=== PATIENT | male | born 1960 | race African-American/Black ===

== ENCOUNTER 2021-05-18 09:14 | Emergency (ER) | payer MEDICAID, SELFPAY ==
[2021-05-18] VITALS (7 sets, daily range): BP systolic 88–116; BP diastolic 52–64; PULSE 80–87; RESP 16–18; TEMP 36.6–36.9; O2SAT 98–99; BMI 29.0
[2021-05-18 10:46] LABS: MANUAL DIFF FLAG NO
--- NOTE | 2021-05-18 10:52 | ECG_ITS ---
Test Reason : GENERAL MEDICINE Blood Pressure : / mmHG Vent. Rate : 079 BPM Atrial Rate : 079 BPM P-R Int : 230 ms QRS Dur : 082 ms QT Int : 380 ms P-R-T Axes : 077 -01 066 degrees QTc Int : 435 ms Sinus rhythm with 1st degree A-V block Otherwise normal ECG When compared with ECG of 12-FEB-2020 15:27, MO interval has increased Referred By: Brianne Garcia Electronically Signed By:Meño Rothman
[2021-05-18] MEDS: 0.9 % Sodium Chloride 1,000 ML 999 ML IV (10:53)
[2021-05-18 11:04] LABS: Basophils Percent Auto 0.3 % (0-2); Eosinophils Absolute Auto 0.2 X10*3/uL (0.0-0.4); Eosinophils Percent Auto 3.4 % (0-4); Hemoglobin 11.6 g/dl (14.0-18.0); Imm Gran Abs Auto 0.02 X10*3/uL (0.00-0.03); Imm Gran Pct Auto 0.3 % (0.0-0.4); Lymphocytes Percent Auto 13.6 % (20-40); Mean Corpuscular HGB Conc 33.1 g/dl (31.0-36.0); Mean Corpuscular Hemoglobin 27.6 pg (27.0-33.0); Mean Corpuscular Volume 83.1 fL (80-98); Mean Platelet Volume 9.8 fL (9.4-12.4); Monocytes Absolute Auto 0.7 X10*3/uL (0.1-1.2); Monocytes Percent Auto 9.9 % (2-11); Neutrophils Absolute Auto 5.1 X10*3/uL (2.0-8.3); Neutrophils Percent Auto 72.5 % (45-73); Platelet Count 285 X10*3/uL (160-400); Red Blood Count 4.21 X10*6/uL (4.60-5.80); Red Cell Distribution Width 14.2 % (11.0-16.0)
[2021-05-18 11:20] LABS: Anion Gap 13 (12-20); Blood Urea Nitrogen 35 mg/dL (9-16); Carbon Dioxide 23 mmol/L (22-29); Chloride 104 mmol/L (96-108); Creatinine Clr Calc Pharmacy 31.4; Estimated Glomerular Filt Rate 25; Glucose Random 95 mg/dL (60-115); Magnesium 2.1 mg/dL (1.6-2.6); Potassium 4.9 mmol/L (3.3-5.1); Sodium 135 mmol/L (135-145)
--- NOTE | 2021-05-18 11:36 | ED.GENADULT ---
HPI - General Adult General Chief complaint: General Medical <VAZQUEZ Mahan Last Filed: 05/18/21 14:08> Stated complaint: low blood pressure <VAZQUEZ Mahan Last Filed: 05/18/21 14:08> Time Seen by Provider: 05/18/21 10:51 <VAZQUEZ Mahan Last Filed: 05/18/21 14:08> Source: patient and family <VAZQUEZ Mahan Last Filed: 05/18/21 14:08> Mode of arrival: ambulatory <VAZQUEZ Mahan - Last Filed: 05/18/21 14:08> Limitations: no limitations <VAZQUEZ Mahan Last Filed: 05/18/21 14:08> History of Present Illness HPI narrative: 60 y/o male with history of DM2 on insulin, HTN on 4 antihypertensive medications, kidney stones & BPH who presents to the ER with 3 days of feeling unwell. He is dizzy, feeling weak and not eating much. He is coughing up phlegm and feeling nauseated at times. He has no vomiting but a few episodes of loose stools, 1 or 2 per day. He denies fevers but has had chills for several days. He reports normal urination and denies dysuria or hematuria. <VAZQUEZ Mahan - Last Filed: 05/18/21 14:08> MD complaint: dizziness, low BP <VAZQUEZ Mahan - Last Filed: 05/18/21 14:08> Onset (ago): day(s) (3) <VAZQUEZ Mahan Last Filed: 05/18/21 14:08> Location: head <VAZQUEZ Mahan Last Filed: 05/18/21 14:08> Radiation: non-radiation <VAZQUEZ Mahan Last Filed: 05/18/21 14:08> Severity: moderate <VAZQUEZ Mahan Last Filed: 05/18/21 14:08> Quality: aching <VAZQUEZ Mahan Last Filed: 05/18/21 14:08> Pain Consistency: intermittent <VAZQUEZ Mahan Last Filed: 05/18/21 14:08> Relieving factors: rest <VAZQUEZ Mahan - Last Filed: 05/18/21 14:08> Exacerbating factors: movement <VAZQUEZ Mahan - Last Filed: 05/18/21 14:08> Associated symptoms: loss of appetite and malaise <VAZQUEZ Mahan - Last Filed: 05/18/21 14:08> Treatments prior to arrival: none <VAZQUEZ Mahan - Last Filed: 05/18/21 14:08> Related Data Allergies/adverse reactions: Allergies Allergy/AdvReac Type Severity Reaction Status Date / Time No Known Allergies Allergy Unverified 08/12/20 16:23 [No Known Allergies*] <VAZQUEZ Mahan - Last Filed: 05/18/21 14:08> Review of Systems Review of Systems: Constitutional: No Fever, + Chills ENT/Mouth: No sore throat, No Rhinorrhea, No Swallowing Difficulty Cardiovascular: No Chest Pain, No SOB, No Orthopnea, No Edema Respiratory: + Cough, No Sputum, No Wheezing, No dyspnea Gastrointestinal: + Nausea, No Vomiting, + Diarrhea, No abdominal Pain, No Hematochezia, No Melena Genitourinary: No Dysuria, No Urinary Frequency, No Hematuria Musculoskeletal: No joint pain, No Myalgias Skin: No Skin Lesions, No rash Neuro: + Weakness, No Numbness, + Dizziness, No Headache Psych: No Anxiety/Panic, No Depression Heme/Lymph: No Bruising, No Lymphadenopathy Endocrine: No Polyuria, No Polydipsia <VAZQUEZ Mahan Last Filed: 05/18/21 14:08> [facility] Past Medical History Attestation statement: The following information was validated with the patient. <VAZQUEZ Mahan - Last Filed: 05/18/21 14:08> Medical History: Medical History Diabetes High cholesterol HTN (hypertension) Renal failure <VAZQUEZ Mahan Last Filed: 05/18/21 14:08> Social History Social History: Social History Alcohol intake: never Patient Tobacco Use Status: Current everyday Tobacco user Use of substances other than those prescribed or required for medical reasons: No Advance Directives: Yes Advance Directives Information Provided: Yes Advance Directives on File: No <VAZQUEZ Mahan - Last Filed: 05/18/21 14:08> Physical Exam Vital Signs: Vital Signs: Last Vital Signs Temp 98.0 F 05/18/21 12:06 Pulse 80 05/18/21 12:06 Resp 17 05/18/21 12:06 BP 116/64 05/18/21 12:06 Pulse Ox 99 05/18/21 12:06 Body Mass Index 29.0 Appearance: Alert. Oriented X3. No acute distress. Eyes: Pupils equal, round and reactive to light. ENT: Pharynx normal. Neck: Normal inspection. Neck supple. CVS: Normal heart rate and rhythm. Pulses normal. Respiratory: No respiratory distress. Breath sounds normal. Abdomen: Soft and nontender. +BS x4 Skin: Skin warm and dry. Normal skin color. Normal skin turgor. No rashes. Extremities: No lower extremity edema. Neuro: Oriented X 3. No motor deficit. No sensory deficit. Ambulates with steady gait. Nonfocal <VAZQUEZ Mahan - Last Filed: 05/18/21 14:08> Vital Signs: Last Vital Signs Temp 98.0 F 05/18/21 12:06 Pulse 80 05/18/21 12:06 Resp 17 05/18/21 12:06 BP 116/64 05/18/21 12:06 Pulse Ox 99 05/18/21 12:06 Body Mass Index 29.0 <Eddie Navarrete MD - Last Filed: 06/19/21 16:18> Course Course Course Narrative: 60 y/o male with history of DM and CKD presenting with generalized weakness, dizziness and low BP at home in the setting of decreased PO intake and some mild diarrhea. He has been taking all 4 of his antihypertensive. Suspect dehydration contributing and possible orthostatic hypotension. Will check lactic acid and look for source of infection. He is non-toxic appearing, afebrile and non-focal neuro examination. No evidence of sepsis at this time. <VAZQUEZ Mahan - Last Filed: 05/18/21 14:08> I have reviewed the chart <Eddie Navarrete MD - Last Filed: 06/19/21 16:18> Reevaluation(s) Reevaluation #1: Lab workup shows stable CKD, no leukocytosis. UA negative. Orthostatic revealed drop in SBP to high 80s, no dizziness just generalized weakness. s/p 1L IVF and feeling better already. Will give another liter and repeat orthostatic vital signs. <VAZQUEZ Mahan - Last Filed: 05/18/21 14:08> Reevaluation #2: BP 116/64 after 2 L IVF. lactic acid is normal. He feels much better. No evidence of infection. He was likely dehydrated and this combined with multiple antihypertensive agents caused his symptoms. Recommended close monitoring of BP and holding BP meds unless >120/80. He is stable for d/c home with outpatient follow up. <VAZQUEZ Mahan - Last Filed: 05/18/21 14:08> Medical Decision Making Lab Data Result diagrams: : 05/18/21 10:39 05/18/21 10:39 <VAZQUEZ Mahan - Last Filed: 05/18/21 14:08> Labs: Lab Results 05/18/21 05/18/21 05/18/21 Range/Units 10:39 10:39 11:03 WBC 7.0 (4.8-10.8) X10*3/uL RBC 4.21 L (4.60-5.80) X10*6/uL Hgb 11.6 L (14.0-18.0) g/dl Hct 35.0 L (42-52) % MCV 83.1 (80-98) fL MCH 27.6 (27.0-33.0) pg MCHC 33.1 (31.0-36.0) g/dl RDW 14.2 (11.0-16.0) % Plt Count 285 (160-400) X10*3/uL MPV 9.8 (9.4-12.4) fL Immature Gran % (Auto) 0.3 (0.0-0.4) % Neut % (Auto) 72.5 (45-73) % Lymph % (Auto) 13.6 L (20-40) % [place] % (Auto) 9.9 (2-11) % Eos % (Auto) 3.4 (0-4) % Baso % (Auto) 0.3 (0-2) % Lymph # (Auto) 1.0 L (1.2-4.9) X10*3/uL [place] # (Auto) 0.7 (0.1-1.2) X10*3/uL Eos # (Auto) 0.2 (0.0-0.4) X10*3/uL Baso # (Auto) 0.0 (0.0-0.2) X10*3/uL Abs Immat Gran (auto) 0.02 (0.00-0.03) X10*3/uL Absolute Neuts (auto) 5.1 (2.0-8.3) X10*3/uL Absolute Nucleated RBC 0.000 (0.0-0.012) X10*3/uL Nucleated RBC % (auto) 0.0 (0.0-0.2) /100WBC Sodium 135 (135-145) mmol/L Potassium 4.9 (3.3-5.1) mmol/L Chloride 104 (96-108) mmol/L Carbon Dioxide 23 (22-29) mmol/L Anion Gap 13 (12-20) BUN 35 H (9-16) mg/dL Creatinine 2.62 H (0.5-1.4) mg/dL Estim Creat Clear Calc 31.4 Estimated GFR 25 Random Glucose 95 (60-115) mg/dL Lactic Acid 0.5 (0.5-2.0) mmol/L Calcium 9.0 (8.4-10.2) mg/dL Magnesium 2.1 (1.6-2.6) mg/dL Troponin I High Sens (<3.5-35.0) ng/L Urine Color Urine Appearance Urine pH (5.0-8.0) Ur Specific [place] (1.005-1.025) Urine Protein (NEG-TRACE) MG/DL Urine Glucose (UA) (NEG) MG/DL Urine Ketones (NEG) MG/DL Urine Blood (NEG) Urine Nitrite (NEG) Ur Leukocyte Esterase (NEG) Urine RBC (0) /HPF Urine WBC (0-4) /HPF Ur Squamous Epith Cells /LPF Urine Bacteria /LPF 05/18/21 05/18/21 Range/Units 11:03 12:05 WBC (4.8-10.8) X10*3/uL RBC (4.60-5.80) X10*6/uL Hgb (14.0-18.0) g/dl Hct (42-52) % MCV (80-98) fL MCH (27.0-33.0) pg MCHC (31.0-36.0) g/dl RDW (11.0-16.0) % Plt Count (160-400) X10*3/uL MPV (9.4-12.4) fL Immature Gran % (Auto) (0.0-0.4) % Neut % (Auto) (45-73) % Lymph % (Auto) (20-40) % [place] % (Auto) (2-11) % Eos % (Auto) (0-4) % Baso % (Auto) (0-2) % Lymph # (Auto) (1.2-4.9) X10*3/uL [place] # (Auto) (0.1-1.2) X10*3/uL Eos # (Auto) (0.0-0.4) X10*3/uL Baso # (Auto) (0.0-0.2) X10*3/uL Abs Immat Gran (auto) (0.00-0.03) X10*3/uL Absolute Neuts (auto) (2.0-8.3) X10*3/uL Absolute Nucleated RBC (0.0-0.012) X10*3/uL Nucleated RBC % (auto) (0.0-0.2) /100WBC Sodium (135-145) mmol/L Potassium (3.3-5.1) mmol/L Chloride (96-108) mmol/L Carbon Dioxide (22-29) mmol/L Anion Gap (12-20) BUN (9-16) mg/dL Creatinine (0.5-1.4) mg/dL Estim Creat Clear Calc Estimated GFR Random Glucose (60-115) mg/dL Lactic Acid (0.5-2.0) mmol/L Calcium (8.4-10.2) mg/dL Magnesium (1.6-2.6) mg/dL Troponin I High Sens < 3.5 (<3.5-35.0) ng/L Urine Color YELLOW Urine Appearance CLEAR Urine pH 6.0 (5.0-8.0) Ur Specific [place] 1.015 (1.005-1.025) Urine Protein NEG (NEG-TRACE) MG/DL Urine Glucose (UA) NEG (NEG) MG/DL Urine Ketones NEG (NEG) MG/DL Urine Blood NEG (NEG) Urine Nitrite NEG (NEG) Ur Leukocyte Esterase NEG (NEG) Urine RBC 0-2 (0) /HPF Urine WBC 0-2 (0-4) /HPF Ur Squamous Epith Cells TRACE /LPF Urine Bacteria NONE /LPF <VAZQUEZ Mahan - Last Filed: 05/18/21 14:08> Lab Results 05/18/21 05/18/21 05/18/21 Range/Units 10:39 10:39 11:03 WBC 7.0 (4.8-10.8) X10*3/uL RBC 4.21 L (4.60-5.80) X10*6/uL Hgb 11.6 L (14.0-18.0) g/dl Hct 35.0 L (42-52) % MCV 83.1 (80-98) fL MCH 27.6 (27.0-33.0) pg MCHC 33.1 (31.0-36.0) g/dl RDW 14.2 (11.0-16.0) % Plt Count 285 (160-400) X10*3/uL MPV 9.8 (9.4-12.4) fL Immature Gran % (Auto) 0.3 (0.0-0.4) % Neut % (Auto) 72.5 (45-73) % Lymph % (Auto) 13.6 L (20-40) % [place] % (Auto) 9.9 (2-11) % Eos % (Auto) 3.4 (0-4) % Baso % (Auto) 0.3 (0-2) % Lymph # (Auto) 1.0 L (1.2-4.9) X10*3/uL [place] # (Auto) 0.7 (0.1-1.2) X10*3/uL Eos # (Auto) 0.2 (0.0-0.4) X10*3/uL Baso # (Auto) 0.0 (0.0-0.2) X10*3/uL Abs Immat Gran (auto) 0.02 (0.00-0.03) X10*3/uL Absolute Neuts (auto) 5.1 (2.0-8.3) X10*3/uL Absolute Nucleated RBC 0.000 (0.0-0.012) X10*3/uL Nucleated RBC % (auto) 0.0 (0.0-0.2) /100WBC Sodium 135 (135-145) mmol/L Potassium 4.9 (3.3-5.1) mmol/L Chloride 104 (96-108) mmol/L Carbon Dioxide 23 (22-29) mmol/L Anion Gap 13 (12-20) BUN 35 H (9-16) mg/dL Creatinine 2.62 H (0.5-1.4) mg/dL Estim Creat Clear Calc 31.4 Estimated GFR 25 Random Glucose 95 (60-115) mg/dL Lactic Acid 0.5 (0.5-2.0) mmol/L Calcium 9.0 (8.4-10.2) mg/dL Magnesium 2.1 (1.6-2.6) mg/dL Troponin I High Sens (<3.5-35.0) ng/L Urine Color Urine Appearance Urine pH (5.0-8.0) Ur Specific [place] (1.005-1.025) Urine Protein (NEG-TRACE) MG/DL Urine Glucose (UA) (NEG) MG/DL Urine Ketones (NEG) MG/DL Urine Blood (NEG) Urine Nitrite (NEG) Ur Leukocyte Esterase (NEG) Urine RBC (0) /HPF Urine WBC (0-4) /HPF Ur Squamous Epith Cells /LPF Urine Bacteria /LPF 05/18/21 05/18/21 Range/Units 11:03 12:05 WBC (4.8-10.8) X10*3/uL RBC (4.60-5.80) X10*6/uL Hgb (14.0-18.0) g/dl Hct (42-52) % MCV (80-98) fL MCH (27.0-33.0) pg MCHC (31.0-36.0) g/dl RDW (11.0-16.0) % Plt Count (160-400) X10*3/uL MPV (9.4-12.4) fL Immature Gran % (Auto) (0.0-0.4) % Neut % (Auto) (45-73) % Lymph % (Auto) (20-40) % [place] % (Auto) (2-11) % Eos % (Auto) (0-4) % Baso % (Auto) (0-2) % Lymph # (Auto) (1.2-4.9) X10*3/uL [place] # (Auto) (0.1-1.2) X10*3/uL Eos # (Auto) (0.0-0.4) X10*3/uL Baso # (Auto) (0.0-0.2) X10*3/uL Abs Immat Gran (auto) (0.00-0.03) X10*3/uL Absolute Neuts (auto) (2.0-8.3) X10*3/uL Absolute Nucleated RBC (0.0-0.012) X10*3/uL Nucleated RBC % (auto) (0.0-0.2) /100WBC Sodium (135-145) mmol/L Potassium (3.3-5.1) mmol/L Chloride (96-108) mmol/L Carbon Dioxide (22-29) mmol/L Anion Gap (12-20) BUN (9-16) mg/dL Creatinine (0.5-1.4) mg/dL Estim Creat Clear Calc Estimated GFR Random Glucose (60-115) mg/dL Lactic Acid (0.5-2.0) mmol/L Calcium (8.4-10.2) mg/dL Magnesium (1.6-2.6) mg/dL Troponin I High Sens < 3.5 (<3.5-35.0) ng/L Urine Color YELLOW Urine Appearance CLEAR Urine pH 6.0 (5.0-8.0) Ur Specific [place] 1.015 (1.005-1.025) Urine Protein NEG (NEG-TRACE) MG/DL Urine Glucose (UA) NEG (NEG) MG/DL Urine Ketones NEG (NEG) MG/DL Urine Blood NEG (NEG) Urine Nitrite NEG (NEG) Ur Leukocyte Esterase NEG (NEG) Urine RBC 0-2 (0) /HPF Urine WBC 0-2 (0-4) /HPF Ur Squamous Epith Cells TRACE /LPF Urine Bacteria NONE /LPF <Eddie Navarrete MD - Last Filed: 06/19/21 16:18> ECG Data Attestation: I personally reviewed and interpreted this ECG as follows: <VAZQUEZ Mahan - Last Filed: 05/18/21 14:08> Interpretation: sinus rhythm with 1st degree AV block, MT interval 220 ms, no ST segment elevations or depressions. <VAZQUEZ Mahan - Last Filed: 05/18/21 14:08> Discharge Plan Discharge Clinical Impression: Dehydration <VAZQUEZ Mahan - Last Filed: 05/18/21 14:08> Patient Disposition: Home, Self-Care <VAZQUEZ Mahan - Last Filed: 05/18/21 14:08> Instructions: Dehydration (ED), Near Syncope (ED) <VAZQUEZ Mahan - Last Filed: 05/18/21 14:08> Additional Instructions: Your blood workup today was unremarkable, kidney function is stable. Your urine test is normal. You were given 2 liters of IV fluid with improvement in your symptoms. Recommend rest, increasing your oral intake. Hold your blood pressure medications for now and monitor your blood pressure at home. Do not take them unless your BP is >120/80. Follow up with your doctor and your kidney doctor. If you have any worsening symptoms come back to the ER for further evaluation. <VAZQUEZ Mahan - Last Filed: 05/18/21 14:08> Stand Alone Forms: Work/School Release <VAZQUEZ Mahan - Last Filed: 05/18/21 14:08> Interventions: ED Discharge Assessment Last Done: 05/18/21 13:41 <VAZQUEZ Mahan - Last Filed: 05/18/21 14:08> Discharge Date/Time: 05/18/21 13:41 <VAZQUEZ Mahan - Last Filed: 05/18/21 14:08>
[2021-05-18 11:49] LABS: Troponin-I High Sensitivity < 3.5 ng/L (<3.5-35.0)
[2021-05-18 11:56] LABS: Lactic Acid 0.5 mmol/L (0.5-2.0)
[2021-05-18 12:16] LABS: Glucose Urine UA NEG (NEG); Leukocyte Esterase Urine NEG (NEG); Nitrite Urine NEG (NEG); Specific Gravity - Urine 1.015 (1.005-1.025); Urine Blood NEG (NEG); Urine Ketones NEG (NEG); Urine Protein NEG (NEG-TRACE)
[2021-05-18 12:17] LABS: Appearance Urine CLEAR; Color Urine YELLOW
[2021-05-18] MEDS: 0.9 % Sodium Chloride 1,000 ML 999 ML IVCONT (12:29)
[2021-05-18 12:52] LABS: RBC Urine 0-2 /HPF (0); Squamous Epithelial Cell Urine TRACE /LPF; WBC Urine 0-2 /HPF (0-4)
== END 2021-05-18 13:41 | disposition home or self-care (01) ==
PROVIDERS: Physician Assistant; Emergency Provider Emergency Medicine; PCP Hospitalist
DX: E86.0 Dehydration (principal); E11.22 Type 2 diabetes mellitus with diabetic chronic kidney disease; I12.9 Hypertensive chronic kidney disease with stage 1 through stage 4 chronic kidney disease, or unspecified chronic kidney disease; N18.9 Chronic kidney disease, unspecified; Z79.4 Long term (current) use of insulin; Z79.899 Other long term (current) drug therapy
CPT/HCPCS: 36415; 80048; 81001; 83605; 83735; 84484; 85025; 93005; 96360; 96361; 99284; 99285